=== PATIENT | female | born 1965 | race Caucasian/White ===

== ENCOUNTER 2020-04-26 18:51 | Emergency (ER) | payer OTHER ==
[2020-04-26 19:02] VITALS: TEMP 97.8; BMI 43.8
[2020-04-26] MEDS ORDERED: cloNIDine HCL 0.1 MG TABLET PO ONE (19:43)
[2020-04-26] MEDS ORDERED: ACETAMINOPHEN 500 MG TABLET (FP) PO ONE (19:43)
--- NOTE | 2020-04-26 19:43 | PDOC ---
History of Present Illness - General Chief Complaint: Blood Pressure Problem Stated Complaint: HEADACHE, HTN Time Seen by Provider: 04/26/20 19:21 History Source: Patient Exam Limitations: No Limitations - History of Present Illness Initial Comments: 04/26/20 19:45 This is a 55-year-old female who comes in complaining of headache times today. Patient took 650 mg of Tylenol earlier in the day with resolution of the headache however she took her blood pressure and noted it that it was elevated so she came in for evaluation. Patient said now that she got here her headache is starting to come back but is still very mild. Patient denies any blurry vision, nausea, palpitations, chest pain, shortness of breath, dizziness or any other symptoms. Allergies: as per nursing notes Past Medical History: none Social history: Lives with family. No smoking. No alcohol. No illicit drugs. Surgical history: None General: No fevers or chills, no weakness, no weight loss HEENT: No change in vision. No sore throat,. No ear pain CardioVascular: no chest discomfort. No shortness of breath Respiratory:No cough, or wheezing. Gastrointestinal: no nausea, vomiting, diarrhea or constipation, No rectal bleeding Genitourinary: No dysuria, hematuria, or frequency Musculoskeletal: No joint or muscle pain or swelling Neurologic: + headache, vertigo, dizziness or loss of consciousness Psychiatric: nor depression Skin: No rashes or easy bruising Endocrine: no increased thirst or abnormal weight change Allergic: no skin or latex allergy All other systems reviewed and normal GENERAL: The patient is awake, alert, and fully oriented, in no acute distress. HEENT:Head is normal with no signs of trauma. Eyes: Pupils equal, round and reactive to light, Ears, and Throat are normal. Neck is supple. No Lymphadenopathy. EXTREMITIES:atraumatic, Normal range of motion, no edema. NEUROLOGICAL: Normal speech, normal gait. PSYCH: Normal mood, normal affect. SKIN: Warm, Dry, normal turgor, no rashes or lesions noted. 04/26/20 21:03 Assessment and plan: Patient given clonidine with some improvement in her blood pressure however it is still mildly elevated at 151 systolic. Patient given a little Xanax in addition to the clonidine. Patient headache has resolved with the Tylenol and patient was referred back to her primary care doctor for further evaluation and follow-up. Past History - Medical History Allergies/Adverse Reactions: Allergies Allergy/AdvReac Type Severity Reaction Status Date / Time clindamycin Allergy Intermediate Swelling Verified 04/26/20 18:52 Home Medications: Ambulatory Orders Hydrochlorothiazide [Hctz -] 50 mg PO DAILY 03/10/18 Anemia: No Asthma: No Cancer: No Cardiac Disorders: No CVA: No COPD: No CHF: No Dementia: No Diabetes: No GI Disorders: No Disorders: No HTN: Yes Hypercholesterolemia: No Liver Disease: No Seizures: No Thyroid Disease: No - Surgical History Appendectomy: No Cardiac Surgery: No Cholecystectomy: Yes (2007) Lung Surgery: No Neurologic Surgery: No Orthopedic Surgery: No - Reproductive History Is Patient Now?: No - Psycho-Social/Smoking History Smoking History: Never smoked Have you smoked in the past 12 months: No - Substance Abuse Hx (Audit-C & DAST Scrn) How often the patient has a drink containing alcohol: Never Score: In Men: 4 or > Positive; In Women: 3 or > Positive: 0 Screen Result (Pos requires Nsg. Audit-10AR): Negative In the last yr the pt used illegal drug/Rx for NonMed reason: No Score: Yes response is considered Positive: 0 Screen Result (Positive result requires Nsg. DAST-10): Negative *Physical Exam - Vital Signs Last Vital Signs Temp Pulse Resp BP Pulse Ox 97.8 F 80 18 172/95 H 100 04/26/20 18:52 04/26/20 18:52 04/26/20 18:52 04/26/20 18:52 04/26/20 18:52 Discharge - Discharge Information Problems reviewed: Yes Clinical Impression/Diagnosis: Hypertension Qualifiers: Hypertension type: unspecified Qualified Code(s): I10 - Essential (primary) hypertension Headache Qualifiers: Headache type: unspecified Condition: Stable Disposition: HOME - Admission No - Follow up/Referral - Patient Discharge Instructions Patient Printed Discharge Instructions: DI for High Blood Pressure Additional Instructions: It is important you call your doctor in the morning and discuss with your doctor getting started on some additional blood pressure medication. For the headache you can take Tylenol 1 g as often as every 4-6 hours as needed. Return to the emergency department immediately with ANY new, persistent or worsening symptoms. Continue any medications as previously prescribed by your physician. You should follow up with your primary doctor as soon as possible regarding today's emergency department visit. . Please make sure your doctor reviews the results of your emergency evaluation. Thank you for coming to the Emergency Department today for your care. It was a pleasure to see you today. Please note that your evaluation is INCOMPLETE until you follow-up with your doctor. - Post Discharge Activity
[2020-04-26] MEDS ORDERED: ACETAMINOPHEN 500 MG TABLET (FP) ONE (19:45)
[2020-04-26] MEDS ORDERED: cloNIDine HCL 0.1 MG TABLET ONE (19:45)
[2020-04-26 20:21] VITALS: BP 151/85; PULSE 85
[2020-04-26] MEDS ORDERED: ALPRAZolam 1 MG TABLET PO PRN (20:45)
[2020-04-26] MEDS ORDERED: ALPRAZolam 0.25 MG TABLET ONE (20:52)
== END 2020-04-26 21:08 | disposition home or self-care (01) ==
LOC: FER 18:51
DX: I10 Essential (primary) hypertension (principal)
CPT/HCPCS: 99284-25; J0735

== ENCOUNTER 2020-11-03 01:19 | Observation (INO) | payer OTHER ==
[2020-11-03 01:34] VITALS: BMI 41.5
[2020-11-03] MEDS ORDERED: FAMOTIDINE 20 MG/50 ML IVPB 20 MG/50 ML MG IVPB ONE ×2 (02:25→03:22)
[2020-11-03] MEDS ORDERED: ACETAMINOPHEN 1000 MG/100 ML VIAL (NON FORMULARY) IVPB ONE (02:25)
[2020-11-03] MEDS ORDERED: SODIUM CHLORIDE 0.9% 500 ML INFUS.BAG IV ONE (02:25)
[2020-11-03] MEDS ORDERED: ACETAMINOPHEN INJECTION 100 ML IVPB ONE (02:38)
[2020-11-03 02:50] LABS: BASO % 0.6 % (0-2.0); EOS % 1.7 % (0-4.5); HEMATOCRIT 45.1 % (32.4-45.2); HEMOGLOBIN 14.8 GM/dL (10.7-15.3); LYMPH % 21.3 % (8-40); MCH 27.1 pg (25.7-33.7); MCHC 32.8 g/dl (32.0-36.0); MEAN CELL VOLUME 82.8 fl (80-96); MEAN PLT VOLUME 9.6 fl (7.5-11.1); MONO % 6.3 % (3.8-10.2); NEUT % 70.1 % (42.8-82.8); PLATELET COUNT 364 K/MM3 (134-434); RBC 5.45 M/mm3 (3.60-5.2); RDW 14.2 % (11.6-15.6); WHITE BLOOD COUNT 11.1 K/mm3 (4.0-10.0)
[2020-11-03 02:59] LABS: CHLORIDE 102 mmol/L (98-107); SODIUM 138 mmol/L (136-145)
[2020-11-03 03:00] LABS: ALBUMIN 4.2 g/dl (3.4-5.0)
[2020-11-03 03:01] LABS: CALCIUM 10.4 mg/dL (8.5-10.1)
[2020-11-03 03:02] LABS: ANION GAP 6 MMOL/L (8-16); BLOOD UREA NITROGEN 19.4 mg/dL (7-18); CO2 30 mmol/L (21-32); GLUCOSE,RANDOM 107 mg/dL (74-106); LIPASE 81 U/L (73-393)
[2020-11-03 03:04] LABS: SGOT/AST 18 U/L (15-37); SGPT/ALT 26 U/L (13-61)
[2020-11-03 03:05] LABS: CREATININE 0.7 mg/dL (0.55-1.3)
[2020-11-03 03:06] LABS: BILIRUBIN,TOTAL 0.5 mg/dL (0.2-1); TOT PROT 7.6 g/dl (6.4-8.2)
[2020-11-03 03:07] LABS: ALK PHOS 149 U/L (45-117)
[2020-11-03] MEDS ORDERED: HYDROCHLOROTHIAZIDE 25 MG TABLET (FP) ONE ×2 (06:44→12:16)
[2020-11-03 09:06] VITALS: TEMP 97.2
[2020-11-03] MEDS ORDERED: REGADENOSON 0.4 MG/5 ML PRE-FILLED SYRINGE IVPUSH ONE ×2 (12:05→12:45)
[2020-11-03] MEDS ORDERED: HYDROCHLOROTHIAZIDE 50 MG TABLET PO ONE (12:14)
[2020-11-03] MEDS ORDERED: LOSARTAN POTASSIUM 50 MG TABLET PO ONE (12:15)
[2020-11-03] MEDS ORDERED: LOSARTAN POTASSIUM 50 MG TABLET ONE (12:17)
[2020-11-03 16:05] VITALS: BP 146/76
[2020-11-03 16:47] LABS: INR 1.13 (0.83-1.09); PROTHROMBIN TIME (PATIENT) 13.6 SEC (9.7-13.0)
[2020-11-03 16:50] LABS: ACTIVATED PTT 40.8 SECONDS (25.2-36.5)
[2020-11-03] MEDS ORDERED: BUDESONIDE/FORMETEROL FUMARATE 160/4.5 mcg INHALER IH SCH (22:00)
[2020-11-04 01:39] VITALS: PULSE 84
[2020-11-04] MEDS ORDERED: HYDROCHLOROTHIAZIDE 25 MG TABLET (FP) PO SCH (10:00)
[2020-11-04] MEDS ORDERED: LOSARTAN POTASSIUM 50 MG TABLET PO SCH (10:00)
== END 2020-11-03 17:30 | disposition home or self-care (01) ==
LOC: JER 01:19 → JERBED 08:36
PROVIDERS: ADMIT Student in an Organized Health Care Education/Training Program; ATTEND Student in an Organized Health Care Education/Training Program
PROC: 3E033NZ Introduction of Analgesics, Hypnotics, Sedatives into Peripheral Vein, Percutaneous Approach (ICD-10-PCS; principal; 2020-11-03)
PROC: 3E033GC Introduction of Other Therapeutic Substance into Peripheral Vein, Percutaneous Approach (ICD-10-PCS; 2020-11-03)
PROC: 3E0337Z Introduction of Electrolytic and Water Balance Substance into Peripheral Vein, Percutaneous Approach (ICD-10-PCS; 2020-11-03)
DX: I10 Essential (primary) hypertension (principal); E66.01 Morbid (severe) obesity due to excess calories; Z68.41 Body mass index [BMI] 40.0-44.9, adult; Z88.1 Allergy status to other antibiotic agents; R48.8 Other symbolic dysfunctions; D68.2 Hereditary deficiency of other clotting factors; D66 Hereditary factor VIII deficiency; R79.89 Other specified abnormal findings of blood chemistry; K46.9 Unspecified abdominal hernia without obstruction or gangrene; Z29.9 Encounter for prophylactic measures, unspecified; Z86.16 Personal history of COVID-19; I45.10 Unspecified right bundle-branch block; R06.00 Dyspnea, unspecified
CPT/HCPCS: 36415; 71046-TC-FY; 78452-TC; 80053; 82550; 83690; 84484; 85025; 85384; 85610; 85730; 93005; 93010; 93017; 96361; 96365; 96375; 99285-25; A9502; C9803; G0378; J0131; J2785; U0003; U0005